=== PATIENT | female | born 1935 | race Caucasian/White ===

== ENCOUNTER 2017-09-28 11:33 | Day surgery (SDC) | payer MEDICARE, OTHER ==
[~2017-09-28] VITALS: Ht 160 cm; Wt 72.7 kg
[2017-09-28] MEDS ORDERED: LOSA1TAB39 PO (11:57)
[2017-09-28] MEDS ORDERED: fentaNYL/PF 50MCG/1 ML 2ML syringe ONE (12:02)
[2017-09-28] MEDS ORDERED: LIDOcaine Viscous 15ml cup ONE (12:03)
[2017-09-28] MEDS ORDERED: MIDAZolam 5mg/5ml vial ONE (12:03)
[2017-09-28 12:06] VITALS: BP 175/82
[2017-09-28 13:02] VITALS: BP 123/72
[2017-09-28 13:12] VITALS: BP 136/74
[2017-09-28 13:37] VITALS: BP 147/73
[2017-09-28 13:47] VITALS: BP 149/73
== END 2017-09-28 13:50 | disposition home or self-care (01) ==
LOC: GI LAB 11:33
PROVIDERS: ATTEND Internal Medicine Gastroenterology
DX: K44.9 Diaphragmatic hernia without obstruction or gangrene (principal); K29.50 Unspecified chronic gastritis without bleeding; B96.81 Helicobacter pylori [H. pylori] as the cause of diseases classified elsewhere; K22.70 Barrett's esophagus without dysplasia; I10 Essential (primary) hypertension; K20.8 Other esophagitis; Z88.6 Allergy status to analgesic agent; Z88.8 Allergy status to other drugs, medicaments and biological substances; Z86.73 Personal history of transient ischemic attack (TIA), and cerebral infarction without residual deficits; Z90.49 Acquired absence of other specified parts of digestive tract; Z90.89 Acquired absence of other organs; Z79.899 Other long term (current) drug therapy
CPT/HCPCS: 43239; G0500; J2250; J3010; J7030; 88305; 88313; 88342; A4620

== ENCOUNTER 2019-11-06 22:53 | Emergency (ER) | payer MEDICARE, OTHER ==
[~2019-11-06] VITALS: Ht 162.6 cm; Wt 73.6 kg
[~2019-11-06 22:53] MED LIST: LOSA1TAB39 PO
[2019-11-06] MEDS ORDERED: traMADol 50MG tablet PO ONE (23:05)
[2019-11-06] MEDS ORDERED: TRAM50TA2 PO (23:47)
--- NOTE | 2019-11-07 00:05 | NUR ---
DR. ARECHIGA TALKING WITH PT ABOUT DC INSTRUCTIONS. PT WITH FRIEND ON THE WAY TO TRANSPORT HOME.
[2019-11-07] MEDS ORDERED: traMADol 50MG tablet PO ONE (00:15)
--- NOTE | 2019-11-07 00:17 | NUR ---
GIVEN ONE MORE 50 MG TRAMADOL TAB PRIO R TO DC FOR 6 OUT OF 10 PAIN AND SHE WILL BE UNABLE TO GET TO PHARMACY UNTIL MID MORNING. PT ABLE TO GET UP INDEPENDANTLY AND GET INTO WC FOR DC.
[2019-11-07 00:30] VITALS: BP 166/79
== END 2019-11-07 00:30 | disposition home or self-care (01) ==
LOC: ER 22:54
DX: S22.31XA Fracture of one rib, right side, initial encounter for closed fracture (principal); S20.211A Contusion of right front wall of thorax, initial encounter; I10 Essential (primary) hypertension; Z88.5 Allergy status to narcotic agent; Z79.899 Other long term (current) drug therapy; W19.XXXA Unspecified fall, initial encounter; Y93.89 Activity, other specified; Y92.89 Other specified places as the place of occurrence of the external cause; Y99.8 Other external cause status
CPT/HCPCS: 71101; 99283

== ENCOUNTER 2019-11-20 16:04 | Emergency (ER) | payer MEDICARE, OTHER ==
[~2019-11-20] VITALS: Ht 162.6 cm; Wt 80.0 kg
[2019-11-20 16:57] LABS: BASOPHILS # (AUTO) 0.1 X10'3 (0-0.2); BASOPHILS % (AUTO) 1.4 % (0-1); EOSINOPHILS # (AUTO) 0.1 X10'3 (0-0.9); EOSINOPHILS % (AUTO) 2.5 % (0-6); HEMATOCRIT 42.1 % (35.0-45.0); HEMOGLOBIN 14.6 g/dl (12.0-16.0); LYMPHOCYTES # (AUTO) 1.4 X10'3 (1.1-4.8); LYMPHOCYTES % (AUTO) 27.8 % (21-51); MEAN CORPUSCULAR HEMOGLOBIN 31.6 PG (27.0-31.0); MEAN CORPUSCULAR HGB CONC 34.6 g/dL (33.0-36.5); MEAN CORPUSCULAR VOLUME 91.3 FL (78-98); MEAN PLATELET VOLUME 7.2 FL (7.4-10.4); MONOCYTES # (AUTO) 0.6 X10'3 (0-0.9); MONOCYTES % (AUTO) 11.9 % (2-12); NEUTROPHILS # (AUTO) 2.9 X10'3 (1.8-7.7); NEUTROPHILS % (AUTO) 56.4 % (42-75); PLATELET COUNT 313 X10'3 (140-440); RED BLOOD COUNT 4.61 X10'6 (4.20-5.60); RED CELL DISTRIBUTION WIDTH 13.4 % (11.5-14.5); WHITE BLOOD COUNT 5.2 X10'3 (4.5-11.0)
[2019-11-20 17:10] LABS: ALANINE AMINOTRANSFERASE 21 U/L (12-78); ALBUMIN 3.9 G/DL (3.4-5.0); ALBUMIN/GLOBULIN RATIO 1.2 (1.1-1.5); ALKALINE PHOSPHATASE 71 IU/L (46-116); ANION GAP 9 (8-16); ASPARTATE AMINO TRANSFERASE 16 U/L (10-37); BILIRUBIN,TOTAL 0.9 MG/DL (0.1-1.0); BLOOD UREA NITROGEN 10 MG/DL (7-18); BUN/CREATININE RATIO 12.3 (6.6-38.0); CALCIUM 9.1 MG/DL (8.5-10.1); CHLORIDE 99 MMOL/L (99-107); CREATININE 0.81 MG/DL (0.40-0.90); GLUCOSE 105 MG/DL (70-104); POTASSIUM 3.1 MMOL/L (3.5-5.1); SODIUM 134 MMOL/L (135-145); TOTAL CARBON DIOXIDE 26.2 MMOL/L (24-32); TOTAL PROTEIN 7.1 G/DL (6.4-8.2); eGFR 67 ML/MIN
[2019-11-20] MEDS ORDERED: potassium Cl 20 mEq SR tablet PO STA (17:22)
[2019-11-20 17:55] VITALS: BP 156/88
== END 2019-11-20 17:54 | disposition home or self-care (01) ==
LOC: ER 16:05
DX: M79.605 Pain in left leg (principal); E87.6 Hypokalemia; I10 Essential (primary) hypertension; M79.89 Other specified soft tissue disorders; Z60.2 Problems related to living alone; Z88.5 Allergy status to narcotic agent; Z79.899 Other long term (current) drug therapy
CPT/HCPCS: 36415; 80053; 85025; 93971; 99284